=== PATIENT | male | born 1955 | race Caucasian/White ===

== ENCOUNTER 2020-10-31 10:32 | Outpatient (CLI) | payer MEDICARE, OTHER ==
[2020-10-31] MEDS ORDERED: Iopamidol-370 76% 500 ML 1 ML ONE (12:07)
== END 2020-10-31 10:33 | disposition home or self-care (01) ==
LOC: BICCT 10:32
PROVIDERS: ATTEND Internal Medicine Gastroenterology
DX: R10.13 Epigastric pain (principal); R10.33 Periumbilical pain
CPT/HCPCS: 74177; 82565; Q9967